=== PATIENT | male | born 1985 | race Caucasian/White ===

== ENCOUNTER 2016-10-09 19:51 | Emergency (ER) | payer MEDICARE ==
[2016-10-09 20:14] LABS: BASOPHILS 1.4 % (0-2); EOSINOPHILS 3.8 % (0-7); HEMATOCRIT 47.4 % (42.0-54.0); HEMOGLOBIN 15.5 g/dL (13.5-17.5); IMMATURE GRANULOCYTES 0.1 % (0-5); LYMPHOCYTES 23.3 % (15-50); MCHC 32.7 g/dL (31.0-37.0); MCV 85.7 fL (80.0-100.0); MEAN PLATELET VOLUME 9.9 fL (7.4-10.4); MONOCYTES 7.9 % (2-11); NEUTROPHILS 63.5 % (40-80); PLATELET COUNT 275 10x3/uL (130-400); RBC 5.53 10x6/uL (4.20-6.10); RDW 14.8 % (11.5-14.5); WBC 7.6 10x3/uL (4.8-10.8)
[2016-10-09 20:27] LABS: ALBUMIN 3.1 g/dL (3.4-5.0); ALKALINE PHOSPHATASE 36 U/L (46-116); ALT (SGPT) 16 U/L (10-68); BILIRUBIN - TOTAL 1.89 mg/dL (0.2-1.3); CALC OSMOLALITY 280 mosm/kg (275-300); CALCIUM 8.3 mg/dL (8.5-10.1); CARBON DIOXIDE 26.6 mmol/L (21.0-32.0); CHLORIDE - SERUM 106 mmol/L (98-107); CREATININE - SERUM 1.2 mg/dL (0.6-1.3); GLUCOSE 85 mg/dL (74-106); POTASSIUM - SERUM 3.7 mmol/L (3.5-5.1); PROTEIN - SERUM 5.5 g/dL (6.4-8.2); SODIUM 142 mmol/L (136-145); UREA NITROGEN 10 mg/dL (7-18); eGFR NON AFRICAN AMERICAN 76 mL/min (90-120)
[2016-10-09 20:57] LABS: UDS - AMPHET NEGATIVE QUAL (NEGATIVE); UDS - BARB NEGATIVE QUAL (NEGATIVE); UDS - BENZO NEGATIVE QUAL (NEGATIVE); UDS - COCAINE NEGATIVE QUAL (NEGATIVE); UDS - METH NEGATIVE QUAL (NEGATIVE); UDS - OPIATE NEGATIVE QUAL (NEGATIVE); UDS - PCP NEGATIVE QUAL (NEGATIVE); UDS - THC POSITIVE QUAL (NEGATIVE)
== END 2016-10-09 21:20 | disposition home or self-care (01) ==
LOC: D.ER 19:51
PROVIDERS: Family Medicine
DX: Z91.14 Patient's other noncompliance with medication regimen (principal); F31.9 Bipolar disorder, unspecified

== ENCOUNTER 2017-04-06 11:39 | Emergency (ER) | payer MEDICARE | END 2017-04-06 13:24 | disposition home or self-care (01) | LOC: D.ER 11:39 | DX: S67.190A Crushing injury of right index finger, initial encounter (principal); X58.XXXA Exposure to other specified factors, initial encounter; Y93.89 Activity, other specified; Y92.029 Unspecified place in mobile home as the place of occurrence of the external cause; F17.200 Nicotine dependence, unspecified, uncomplicated ==

== ENCOUNTER 2017-08-26 13:23 | Emergency (ER) | payer MEDICARE | END 2017-08-26 16:00 | disposition home or self-care (01) | LOC: D.ER 13:23 | DX: S83.91XA Sprain of unspecified site of right knee, initial encounter (principal); X58.XXXA Exposure to other specified factors, initial encounter; Y93.89 Activity, other specified; Y92.830 Public park as the place of occurrence of the external cause; F17.200 Nicotine dependence, unspecified, uncomplicated ==

== ENCOUNTER 2017-11-08 16:17 | Emergency (ER) | payer MEDICARE | END 2017-11-08 18:44 | disposition home or self-care (01) | LOC: D.ER 16:17 | DX: S60.221A Contusion of right hand, initial encounter (principal); W22.01XA Walked into wall, initial encounter; Y93.89 Activity, other specified; Y92.019 Unspecified place in single-family (private) house as the place of occurrence of the external cause ==

== ENCOUNTER 2018-03-10 13:19 | Emergency (ER) | payer MEDICARE ==
[~2018-03-10] VITALS: Ht 172.7 cm; Wt 55.9 kg
[2018-03-10 13:47] VITALS: Ht 172.7 cm; Wt 55.9 kg
[2018-03-10] MEDS ORDERED: NAPROSYN500 MG PO (15:06)
[2018-03-10 15:11] VITALS: BP 120/74
== END 2018-03-10 15:13 | disposition home or self-care (01) ==
LOC: D.ER
DX: S60.022A Contusion of left index finger without damage to nail, initial encounter (principal); W20.8XXA Other cause of strike by thrown, projected or falling object, initial encounter; Y93.89 Activity, other specified; Y92.019 Unspecified place in single-family (private) house as the place of occurrence of the external cause; F17.200 Nicotine dependence, unspecified, uncomplicated

== ENCOUNTER 2018-05-14 23:29 | Emergency (ER) | payer MEDICARE ==
[~2018-05-14] VITALS: Ht 172.7 cm; Wt 57.3 kg
[~2018-05-14 23:29] MED LIST: NAPROSYN500 MG PO
[2018-05-14 23:35] VITALS: Ht 172.7 cm; Wt 57.3 kg
[2018-05-14] MEDS ORDERED: DICLOFENAC SODI50 MG PO (23:56)
[2018-05-15 00:16] VITALS: BP 132/64
== END 2018-05-15 00:16 | disposition home or self-care (01) ==
LOC: D.ER 23:29
DX: S80.11XA Contusion of right lower leg, initial encounter (principal); V29.9XXA Motorcycle rider (driver) (passenger) injured in unspecified traffic accident, initial encounter; Y93.89 Activity, other specified; Y92.410 Unspecified street and highway as the place of occurrence of the external cause

== ENCOUNTER 2018-07-02 13:17 | Emergency (ER) | payer MEDICARE ==
[~2018-07-02] VITALS: Ht 172.7 cm; Wt 57.7 kg
[~2018-07-02 13:17] MED LIST changes: +DICLOFENAC SODI50 MG PO
[2018-07-02 13:32] VITALS: Ht 172.7 cm; Wt 57.7 kg
[2018-07-02] MEDS ORDERED: FLUTICASONE PRO16 GM NASAL (15:51)
[2018-07-02] MEDS ORDERED: ALBUTEROL SULF8.5 GM INH (15:51)
[2018-07-02] MEDS ORDERED: TESSALON PERLE100 MG PO (15:51)
[2018-07-02] MEDS ORDERED: ZPAK PO (15:51)
[2018-07-02 16:42] VITALS: BP 124/64
== END 2018-07-02 16:42 | disposition home or self-care (01) ==
LOC: D.ER 13:17
DX: J40 Bronchitis, not specified as acute or chronic (principal); J02.9 Acute pharyngitis, unspecified; R05 Cough; F17.200 Nicotine dependence, unspecified, uncomplicated

== ENCOUNTER 2018-07-12 00:12 | Emergency (ER) | payer MEDICARE ==
[~2018-07-12] VITALS: Ht 172.7 cm; Wt 57.3 kg
[~2018-07-12 00:12] MED LIST changes: +ALBUTEROL SULF8.5 GM INH; +FLUTICASONE PRO16 GM NASAL; +TESSALON PERLE100 MG PO; +ZPAK PO
[2018-07-12 00:24] VITALS: Ht 172.7 cm; Wt 57.3 kg
[2018-07-12] MEDS ORDERED: PERMETHRIN60 GM TOPICAL (01:22)
[2018-07-12 01:36] VITALS: BP 120/77
== END 2018-07-12 01:43 | disposition home or self-care (01) ==
LOC: D.ER 00:12
DX: B86 Scabies (principal); F17.200 Nicotine dependence, unspecified, uncomplicated

== ENCOUNTER 2018-10-22 15:53 | Emergency (ER) | payer MEDICARE ==
[~2018-10-22 15:53] MED LIST changes: +PERMETHRIN60 GM TOPICAL
[2018-10-22 15:55] VITALS: BMI 18.5
[2018-10-22] MEDS ORDERED: IBUPROFEN800 MG PO (17:04)
[2018-10-22 17:22] VITALS: BP 115/78
== END 2018-10-22 17:23 | disposition home or self-care (01) ==
LOC: D.ER 15:53
DX: S50.11XA Contusion of right forearm, initial encounter (principal); X58.XXXA Exposure to other specified factors, initial encounter; Y93.9 Activity, unspecified; Y92.9 Unspecified place or not applicable

== ENCOUNTER 2018-12-22 10:49 | Emergency (ER) | payer MEDICARE ==
[~2018-12-22] VITALS: Ht 172.7 cm; Wt 55.9 kg
[~2018-12-22 10:49] MED LIST changes: +IBUPROFEN800 MG PO
[2018-12-22 11:04] VITALS: Ht 172.7 cm; Wt 55.9 kg
[2018-12-22] MEDS ORDERED: VOLTAREN75 MG PO (12:21)
[2018-12-22 12:25] VITALS: BP 126/74
== END 2018-12-22 12:27 | disposition home or self-care (01) ==
LOC: D.ER 10:49
DX: S69.91XA Unspecified injury of right wrist, hand and finger(s), initial encounter (principal); W22.8XXA Striking against or struck by other objects, initial encounter; Y93.89 Activity, other specified; Y92.89 Other specified places as the place of occurrence of the external cause; M79.641 Pain in right hand

== ENCOUNTER 2019-02-03 23:16 | Emergency (ER) | payer MEDICARE ==
[~2019-02-03] VITALS: Ht 172.7 cm; Wt 56.8 kg
[~2019-02-03 23:16] MED LIST changes: +VOLTAREN75 MG PO
[2019-02-03 23:19] VITALS: Ht 172.7 cm; Wt 56.8 kg
[2019-02-04] MEDS ORDERED: DICLOFENAC SODI50 MG PO (00:07)
[2019-02-04 00:12] VITALS: BP 106/60
== END 2019-02-04 00:12 | disposition home or self-care (01) ==
LOC: D.ER 23:16
DX: S60.221A Contusion of right hand, initial encounter (principal); X58.XXXA Exposure to other specified factors, initial encounter; Y93.89 Activity, other specified; Y92.89 Other specified places as the place of occurrence of the external cause

== ENCOUNTER 2019-04-28 14:09 | Emergency (ER) | payer MEDICARE ==
[~2019-04-28] VITALS: Ht 172.7 cm; Wt 55.7 kg
[2019-04-28 14:17] VITALS: Ht 172.7 cm; Wt 55.7 kg
[2019-04-28] MEDS ORDERED: PREDNISONE20 MG PO (15:32)
[2019-04-28] MEDS ORDERED: ALBUTEROL SULF8.5 GM INH (15:32)
[2019-04-28 16:15] VITALS: BP 128/72
== END 2019-04-28 16:16 | disposition home or self-care (01) ==
LOC: D.ER 14:09
DX: J40 Bronchitis, not specified as acute or chronic (principal); F17.210 Nicotine dependence, cigarettes, uncomplicated

== ENCOUNTER 2019-05-18 12:54 | Emergency (ER) | payer MEDICARE ==
[~2019-05-18] VITALS: Ht 172.7 cm; Wt 55.9 kg
[~2019-05-18 12:54] MED LIST changes: +PREDNISONE20 MG PO
[2019-05-18 13:01] VITALS: Ht 172.7 cm; Wt 55.9 kg
[2019-05-18] MEDS ORDERED: PREDNISONE50 MG PO (13:25)
[2019-05-18 14:10] VITALS: BP 120/74
== END 2019-05-18 14:30 | disposition home or self-care (01) ==
LOC: D.ER 12:54
DX: L23.7 Allergic contact dermatitis due to plants, except food (principal)

== ENCOUNTER 2019-08-21 18:35 | Emergency (ER) | payer MEDICARE ==
[~2019-08-21] VITALS: Ht 172.7 cm; Wt 56.8 kg
[~2019-08-21 18:35] MED LIST changes: +AMOXICILLIN500 M1 PO; +ATARAX 25 MG TA25 MG PO; +PREDNISONE50 MG PO
[2019-08-21 18:46] VITALS: Ht 172.7 cm; Wt 56.8 kg
[2019-08-21] MEDS ORDERED: EC-NAPROSYN500 MG PO (20:16)
[2019-08-21 20:24] VITALS: BP 126/78
== END 2019-08-21 20:27 | disposition home or self-care (01) ==
LOC: D.ER 18:35
DX: S90.32XA Contusion of left foot, initial encounter (principal); W20.8XXA Other cause of strike by thrown, projected or falling object, initial encounter; Y93.9 Activity, unspecified; Y92.9 Unspecified place or not applicable

== ENCOUNTER 2020-01-04 23:22 | Emergency (ER) | payer MEDICARE ==
[~2020-01-04] VITALS: Ht 172.7 cm; Wt 54.4 kg
[~2020-01-04 23:22] MED LIST changes: +EC-NAPROSYN500 MG PO
[2020-01-04 23:30] VITALS: BP 134/84; Ht 172.7 cm; Wt 54.4 kg
== END 2020-01-05 | disposition home or self-care (01) ==
LOC: D.ER 23:22
DX: S50.11XA Contusion of right forearm, initial encounter (principal); W22.8XXA Striking against or struck by other objects, initial encounter; Y93.9 Activity, unspecified; Y92.9 Unspecified place or not applicable